=== PATIENT | female | born 1985 | race African-American/Black ===

== ENCOUNTER 2016-09-21 19:13 | Emergency (ER) | payer BC ==
[~2016-09-21] VITALS: Ht 162.6 cm; Wt 54.5 kg
[2016-09-21 19:40] VITALS: BP 108/81
== END 2016-09-21 22:38 | disposition home or self-care (01) ==
LOC: EMS 19:15
DX: R07.9 Chest pain, unspecified (principal)
CPT/HCPCS: 93005; 99283